=== PATIENT | male | born 1955 | race Caucasian/White ===

== ENCOUNTER → 2022-01-07 10:31 | Outpatient (BNVA) | payer MEDICARE, MEDICAID, SELFPAY | PROVIDERS: PCP Internal Medicine; Visit Provider Internal Medicine Rheumatology | DX: M05.9 Rheumatoid arthritis with rheumatoid factor, unspecified (principal); G89.29 Other chronic pain; M54.50 Low back pain, unspecified; M47.27 Other spondylosis with radiculopathy, lumbosacral region; Z79.899 Other long term (current) drug therapy | CPT/HCPCS: 99202 ==

== ENCOUNTER → 2022-06-30 07:53 | Outpatient (BNVA) | payer MEDICARE, SELFPAY | PROVIDERS: PCP Internal Medicine; Visit Provider Internal Medicine Rheumatology | DX: M05.9 Rheumatoid arthritis with rheumatoid factor, unspecified (principal); M47.27 Other spondylosis with radiculopathy, lumbosacral region; M65.9 Synovitis and tenosynovitis, unspecified; Z79.899 Other long term (current) drug therapy | CPT/HCPCS: 99212 ==